=== PATIENT | female | born 1970 | race Caucasian/White ===

== ENCOUNTER 2018-08-02 10:48 | Emergency (ER) | payer OTHER ==
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
[2018-08-02] MEDS ORDERED: morphine CARPU-JECT 4 MG/1 ML DISP.SYRIN IVPUSH ONE (11:24)
[2018-08-02] MEDS ORDERED: METHOCARBAMOL 500 MG TABLET PO ONE (11:25)
[2018-08-02 12:08] VITALS: BMI 33.2
[2018-08-02] MEDS ORDERED: morphine SULFATE 4 MG/ML VIAL ONE (12:24)
[2018-08-02] MEDS ORDERED: METHOCARBAMOL 500 MG TABLET ONE (12:24)
[2018-08-02 12:36] LABS: BASO % 0.6 % (0-2.0); EOS % 1.3 % (0-4.5); HEMATOCRIT 40.7 % (32.4-45.2); HEMOGLOBIN 13.9 GM/dL (10.7-15.3); LYMPH % 37.3 % (8-40); MEAN CELL VOLUME 88.1 fl (80-96); MEAN PLT VOLUME 8.4 fl (7.5-11.1); MONO % 7.9 % (3.8-10.2); NEUT % 52.9 % (42.8-82.8); PLATELET COUNT 210 K/MM3 (134-434); RBC 4.62 M/mm3 (3.60-5.2); RDW 13.3 % (11.6-15.6); URINE APPEARANCE CLEAR; URINE BILIRUBIN NEGATIVE (NEGATIVE); URINE COLOR YELLOW; URINE GLUCOSE (UA) NEGATIVE (NEGATIVE); URINE KETONE NEGATIVE (NEGATIVE); URINE LEUK ESTERASE NEGATIVE (NEGATIVE); URINE NITRITE NEGATIVE (NEGATIVE); URINE PROTEIN NEGATIVE (NEGATIVE); URINE UROBILINOGEN 0.2 mg/dL (0.2-1.0); WHITE BLOOD COUNT 4.2 K/mm3 (4.0-10.0)
[2018-08-02 13:12] LABS: ALBUMIN 3.9 g/dl (3.4-5.0); ALK PHOS 116 U/L (45-117); ANION GAP 7 MMOL/L (8-16); BILIRUBIN,TOTAL 1.2 mg/dL (0.2-1); BLOOD UREA NITROGEN 9.4 mg/dL (7-18); CALCIUM 9.2 mg/dL (8.5-10.1); CHLORIDE 106 mmol/L (98-107); CO2 27 mmol/L (21-32); CREATININE 0.6 mg/dL (0.55-1.3); GLUCOSE,RANDOM 97 mg/dL (74-106); POTASSIUM 3.8 mmol/L (3.5-5.1); SGOT/AST 16 U/L (15-37); SGPT/ALT 36 U/L (13-61); SODIUM 140 mmol/L (136-145); TOT PROT 7.6 g/dl (6.4-8.2)
[2018-08-02 17:24] VITALS: BP 116/68; PULSE 79; TEMP 97.5
== END 2018-08-02 15:45 | disposition home or self-care (01) ==
LOC: JER 10:48
PROC: 3E033NZ Introduction of Analgesics, Hypnotics, Sedatives into Peripheral Vein, Percutaneous Approach (ICD-10-PCS; principal; 2018-08-02)
DX: S09.8XXA Other specified injuries of head, initial encounter (principal); M25.512 Pain in left shoulder; R07.9 Chest pain, unspecified; V53.5XXA Driver of pick-up truck or van injured in collision with car, pick-up truck or van in traffic accident, initial encounter; Y92.414 Local residential or business street as the place of occurrence of the external cause; Y93.89 Activity, other specified; Y99.8 Other external cause status
CPT/HCPCS: 36415; 70450-TC; 71045-TC-FY; 72125-TC; 80053; 81003; 82550; 84484; 84703; 85025; 87086; 99282-25

== ENCOUNTER 2018-08-02 18:11 | Emergency (ER) | payer OTHER ==
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
[2018-08-02 20:33] VITALS: BP 108/60; PULSE 57; TEMP 98; BMI 24.3
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
== END 2018-08-02 20:35 | disposition home or self-care (01) ==
LOC: JER 18:11
DX: M54.2 Cervicalgia (principal); V49.9XXA Car occupant (driver) (passenger) injured in unspecified traffic accident, initial encounter; Y93.89 Activity, other specified; Y92.89 Other specified places as the place of occurrence of the external cause
CPT/HCPCS: 71275-TC; 99281-25

== ENCOUNTER 2019-01-04 05:31 | Day surgery (SDC) | payer OTHER ==
[2019-01-03 16:56] VITALS: BMI 33.6
[2019-01-04 13:22] LABS: BASO % 0.8 % (0-2.0); EOS % 1.6 % (0-4.5); HEMATOCRIT 40.7 % (32.4-45.2); HEMOGLOBIN 13.8 GM/dL (10.7-15.3); LYMPH % 57.8 % (8-40); MEAN CELL VOLUME 88.1 fl (80-96); MEAN PLT VOLUME 8.9 fl (7.5-11.1); MONO % 10.2 % (3.8-10.2); NEUT % 29.6 % (42.8-82.8); PLATELET COUNT 203 K/MM3 (134-434); RBC 4.62 M/mm3 (3.60-5.2); RDW 13.5 % (11.6-15.6); WHITE BLOOD COUNT 4.7 K/mm3 (4.0-10.0)
[2019-01-04] MEDS ORDERED: MIDAZOLAM HCL 2 MG/2 ML SINGLE DOSE VIAL ONE (13:43)
--- NOTE | 2019-01-04 13:43 | HP ---
History & Physical Update - Physical Physical: No Change - Assessment Assessment: No Change - Plan Plan: No Change
--- NOTE | 2019-01-04 13:51 | OP ---
Operative Note - Note: Operative Date: 01/04/19 (11831) Pre-Operative Diagnosis: Pedunculated submucosal fibroid Operation: Diagnostic hysteroscopy, myomectomy, curettage Findings: Large pedunculated submucosal endocervical fibroid, fundal septum Implants: none Post-Operative Diagnosis: Same as Pre-op Surgeon: Jose M Tavera Anesthesia: MAC Estimated Blood Loss (mls): 5 Drains, Volume Out (mls): 0 (fluid deficit) Fluid Volume Replaced (mls): 600 Operative Report Dictated: Yes
[2019-01-04] MEDS ORDERED: KETOROLAC TROMETHAMINE 30 MG/1 ML VIAL ONE (14:03)
[2019-01-04] MEDS ORDERED: DEXAMETHASONE SOD PHOSPHATE 4 MG/1 ML VIAL ONE (14:03)
[2019-01-04] MEDS ORDERED: oxyCODONE HCL 5 MG TABLET PO PRN (14:19)
[2019-01-04] MEDS ORDERED: ONDANSETRON 4 MG/2 ML VIAL IVPUSH PRN (14:19)
[2019-01-04] MEDS ORDERED: LACTATED RINGERS SOLUTION 1,000 ML IV SCH (14:30)
--- NOTE | 2019-01-04 16:40 | OP ---
DATE OF OPERATION: 01/04/2019 PREOPERATIVE DIAGNOSIS: A 48-year-old female with pain and pedunculated fibroid protruding through the cervix. PROCEDURE: Diagnostic hysteroscopy, myomectomy, endocervical curettage, endometrial curetting. FINDINGS: Normal external genitalia, vaginal mucosa. The cervix was visualized , and external os dilated with a protruding fibroid approximately 8 x 5 cm. Internal os was stenotic. Endometrial cavity was atrophic consistent with patient's age. Septum noted. Bilateral tubal ostia were patent. DESCRIPTION OF PROCEDURE: The patient was taken to the operating room where anesthesia was found to be adequate. She was then prepped and draped in a normal sterile fashion. Appropriate time-out took place. A retractor was utilized to visualize the cervix, which anterior aspect was grasped with a Llanos tenaculum. Findings as previously mentioned. The hysteroscope was attempted to be advanced through the internal os but unsuccessful. Visualization and access complicated by fibroid. The fibroid was grasped with a single-tooth tenaculum and tension applied. The base of the fibroid was noted anteriorly in the endocervical canal and transected with the Gonzalez scissors. The specimen was sent to Pathology. Endocervical curetting took place and the specimen sent to Pathology. Hysteroscopy took place. Following progressive dilation of the internal os, the endometrial cavity was visualized in its entirety. Findings as mentioned above. Endometrial curettage took place and specimen sent to Pathology. Secondary inspection with the hysteroscope revealed no additional anomalies. Procedure was concluded. No active bleeding was noted from the os. All instrumentation was removed from the vagina. Excellent hemostasis noted. Instrument count was reported as correct x2 by the staff. TAYA IRVIN MD [id number] MTDD
[2019-01-04 18:52] VITALS: BP 119/69; PULSE 58; TEMP 98.7
--- NOTE | 2019-01-09 18:03 | PATH ---
Surgical Pathology Report Patient Name: MICA JAEGER [facility]. Rec. #: [id number] /Age/Gender: 1970 (Age: 48) / F Account: [id number] Location: [facility] SURGICAL Taken: 01/04/2019 Received: 01/07/2019 Reported: 01/09/2019 Physicians: Jose M Tavera MD Specimen(s) Received A: ENDOCERVICAL CURETTINGS B: FIBROID C: ENDOMETRIAL CURETTINGS Clinical History Fibroids Final Diagnosis A. ENDOCERVICAL CURETTINGS: SCANTY FRAGMENTS OF UNREMARKABLE ENDOCERVICAL GLANDS ADMIXED WITH BLOOD. B. FIBROID, EXCISION: LEIOMYOMA, 16 GRAMS. C. ENDOMETRIAL CURETTINGS: FRAGMENTS OF SUPERFICIAL PORTION OF WEAKLY PROLIFERATIVE ENDOMETRIAL GLANDS WITHOUT STROMA. Electronically Signed Yaya Bustillos M.D. Gross Description A. Received in formalin labeled "endocervical curettings," is a 1.3 x 1.0 x 0.2 cm aggregate of smith-brown soft tissue fragments admixed with blood clot. The formalin is filtered and the specimen is entirely submitted in one cassette. B. Received in formalin labeled "fibroid," is a 16 g, 3.5 x 3.0 x 2.5 cm smith, firm nodule, consistent with a fibroid. Sectioning reveals smith, firm to rubbery parenchyma with a whorled architecture. No areas of hemorrhage or necrosis are identified. Tap Puller sections are submitted in 3 cassettes. C. Received in formalin labeled "endometrial curettings," is a 1.0 x 1.0 x 0.2 cm aggregate of red-brown soft tissue fragments. The formalin is filtered and the specimen is entirely submitted in one cassette. DL/01/07/2019 saudi01/07/2019
== END 2019-01-04 18:30 | disposition home or self-care (01) ==
LOC: JASU-SURG 05:31
PROVIDERS: ATTEND Student in an Organized Health Care Education/Training Program
PROC: 0UJD8ZZ Inspection of Uterus and Cervix, Via Natural or Artificial Opening Endoscopic (ICD-10-PCS; 2019-01-04)
PROC: 0UB98ZZ Excision of Uterus, Via Natural or Artificial Opening Endoscopic (ICD-10-PCS; principal; 2019-01-04 13:30)
PROC: 0UDB7ZX Extraction of Endometrium, Via Natural or Artificial Opening, Diagnostic (ICD-10-PCS; 2019-01-04 13:30)
DX: D25.9 Leiomyoma of uterus, unspecified (principal)
CPT/HCPCS: 36415; 84703; 85025; 86850; 86900; 86901; 88305-TC; 94760